=== PATIENT | male | born 1985 | race Caucasian/White ===

== ENCOUNTER 2017-09-14 16:58 | Emergency (ER) | payer BC, OTHER ==
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
== END 2017-09-14 18:10 | disposition home or self-care (01) ==
LOC: KA.ED 16:58
DX: S01.81XA Laceration without foreign body of other part of head, initial encounter (principal); S09.90XA Unspecified injury of head, initial encounter; F10.920 Alcohol use, unspecified with intoxication, uncomplicated; X58.XXXA Exposure to other specified factors, initial encounter
CPT/HCPCS: 36415; 70450; 72125; 73130; 99285; G0480